=== PATIENT | female | born 1990 | race Two or more races ===

== ENCOUNTER 2020-07-05 01:39 | Observation (INO) | payer BC ==
[2020-07-05] MEDS ORDERED: IV RINGERS,LACTATED 1000ML 1,000 ML IV SCH (01:45)
[2020-07-05 02:07] LABS: BILIRUBIN,URINE NEGATIVE (NEG); CLARITY,URINE CLEAR; COLOR,URINE YELLOW; NITRITE,URINE NEGATIVE (NEG); PROTEIN,URINE NEGATIVE (NEG-TRACE); UROBILINOGEN,URINE 0.2 mg/dL (0.2 mg/dL)
[2020-07-05 02:16] LABS: BACTERIA,URINE MODERATE /HPF (0-FEW)
[2020-07-05 02:22] LABS: BARBITURATES NEG (NEG); BENZODIAZEPINES NEG (NEG); CANNABINOIDS NEG (NEG); COCAINE NEG (NEG); METHADONE NEG (NEG); OPIATES NEG (NEG); PHENCYCLIDINE NEG (NEG)
[2020-07-05 02:30] LABS: AMPHETAMINE/METHAMPHETAMINE NEG (NEG)
--- NOTE | 2020-07-08 10:36 | NUR ---
Lactated Ringers stopped on 07/06/20 at 1130.
== END 2020-07-05 05:40 | disposition home or self-care (01) ==
LOC: 3 SO LND 01:39
PROVIDERS: ADMIT Obstetrics & Gynecology; ATTEND Obstetrics & Gynecology
DX: O99.891 Other specified diseases and conditions complicating pregnancy (principal); M54.9 Dorsalgia, unspecified; O62.9 Abnormality of forces of labor, unspecified; Z3A.29 29 weeks gestation of pregnancy; Z98.891 History of uterine scar from previous surgery; Z79.899 Other long term (current) drug therapy
CPT/HCPCS: 59025; 80307; 81001; 87086; 96360; 96361; G0378; G0379; J7120

== ENCOUNTER → 2020-09-06 | Outpatient (CLI) | payer SELFPAY ==
[~2020-09-06] MED LIST: ASPI-630 PO; PANT20TA2 PO; PREN1TAB58 PO
== END ==
LOC: LAB 13:28
PROVIDERS: ATTEND Obstetrics & Gynecology
DX: Z01.812 Encounter for preprocedural laboratory examination (principal); Z20.822 Contact with and (suspected) exposure to COVID-19
CPT/HCPCS: U0003; U0005

== ENCOUNTER 2020-09-10 05:50 | Inpatient (IN) | payer SELFPAY ==
[2020-09-10] VITALS (7 sets, daily range): BP systolic 104–133; BP diastolic 48–68
[~2020-09-10] VITALS: Ht 149.9 cm; Wt 92.1 kg
[2020-09-10] MEDS ORDERED: IV RINGERS,LACTATED 1000ML 1,000 ML IV SCH (06:15)
[2020-09-10 06:43] LABS: BASO # 0.1 x10^3/uL (0.0-0.2); BASO % 1 % (0-3); EOS # 0.1 x10^3/uL (0.0-0.7); EOS % 1 % (0-3); HEMOGLOBIN 12.4 g/dL (12.0-15.5); LYMPH # 2.6 x10^3/uL (1.0-4.8); LYMPH % 28 % (24-48); MEAN CORPUSCULAR HEMOGLOBIN 29 pg (25-35); MEAN CORPUSCULAR HGB CONC 34 g/dL (31-37); MEAN CORPUSCULAR VOLUME 86 fL (79-100); MONO # 0.5 x10^3/uL (0.0-1.1); MONO % 6 % (0-9); NEUT # 5.8 x10^3/uL (1.8-7.7); NEUT % 64 % (31-73); PLATELET COUNT 199 x10^3/uL (140-400); RED BLOOD COUNT 4.32 x10^6/uL (3.50-5.40); RED CELL DISTRIBUTION WIDTH 13.3 % (11.5-14.5); WHITE BLOOD COUNT 9.1 x10^3/uL (4.0-11.0)
[2020-09-10] MEDS ORDERED: ASPI-630 PO (07:29)
[2020-09-10] MEDS ORDERED: PREN1TAB58 PO (07:29)
[2020-09-10] MEDS ORDERED: PANT20TA2 PO (07:30)
[2020-09-10] MEDS ORDERED: CITRIC ACID/SODIUM CITRATE 30 ML SOLUTION. PO ONE (07:30)
[2020-09-10] MEDS ORDERED: MORPHINE PF 10 MG/10 ML AMPUL. ONE (07:44)
[2020-09-10] MEDS ORDERED: ePHEDrine PF IN SALINE 50 MG/10 ML SYRINGE. IV ONE (07:44)
[2020-09-10] MEDS ORDERED: FAMOTIDINE 20 MG/2 ML VIAL ONE (07:44)
[2020-09-10] MEDS ORDERED: ONDANSETRON PF 4 MG/2 ML VIAL. ONE (07:44)
[2020-09-10] MEDS ORDERED: fentaNYL PF VIAL 100 MCG/2 ML VIAL ONE (07:45)
[2020-09-10] MEDS ORDERED: OXYTOCIN 10 UNIT/ML VIAL. ONE (07:47)
--- NOTE | 2020-09-10 07:54 | PDOC1 ---
ADJUSTER ARBITRATOR H&P Date of Admission: Date of Admission: Sep 10, 2020 at 05:50 History of Present Illness: EDC: 09/15/20 LMP: 12/10/19 30y @ 39.2 by L=20 presents for scheduled C/S. The pt had preeclampsia with her first . She had a C/S after a failed indxn over the course of 3 days. She was started on ASA for the h/o preeclampsia. She stopped ~2wks prior to today. PMH: Denies PSH: C/S x 2 Meds: PNV All: NKDA OBHx: TC/S x 2 SH: no tob, no EtOH FH: HTN, brain tumor Allergies: Coded Allergies: No Known Drug Allergies (Unverified , 07/05/20) Physical Exam: Vital Signs: Vital Signs Date Time Temp Pulse Resp B/P (MAP) Pulse Ox O2 Delivery O2 Flow Rate FiO2 09/10/20 07:23 98.9 89 20 133/68 (89) Room Air 98.9 PE: GENERAL: No apparent distress. Alert and oriented. HEENT: Head normocephalic, atraumatic. NECK: Supple LUNGS: Clear to auscultation. HEART: RRR, S1, S2 present, pulses intact ABDOMEN: Soft, positive bowel sounds. EXTREMITIES: No cyanosis or edema. NEUROLOGIC: Normal speech, normal tone PSYCHIATRIC: Normal affect, normal mood. SKIN: No ulceration. FHT: 130s +acels/no decels/mLTV [place]: 5 min Labs: Laboratory Tests Test 09/10/20 06:18 White Blood Count 9.1 x10^3/uL (4.0-11.0) Red Blood Count 4.32 x10^6/uL (3.50-5.40) Hemoglobin 12.4 g/dL (12.0-15.5) Hematocrit 37.0 % (36.0-47.0) Mean Corpuscular Volume 86 fL (79-100) Mean Corpuscular Hemoglobin 29 pg (25-35) Mean Corpuscular Hemoglobin Concent 34 g/dL (31-37) Red Cell Distribution Width 13.3 % (11.5-14.5) Platelet Count 199 x10^3/uL (140-400) Neutrophils (%) (Auto) 64 % (31-73) Lymphocytes (%) (Auto) 28 % (24-48) Monocytes (%) (Auto) 6 % (0-9) Eosinophils (%) (Auto) 1 % (0-3) Basophils (%) (Auto) 1 % (0-3) Neutrophils # (Auto) 5.8 x10^3/uL (1.8-7.7) Lymphocytes # (Auto) 2.6 x10^3/uL (1.0-4.8) Monocytes # (Auto) 0.5 x10^3/uL (0.0-1.1) Eosinophils # (Auto) 0.1 x10^3/uL (0.0-0.7) Basophils # (Auto) 0.1 x10^3/uL (0.0-0.2) Laboratory Tests 09/10/20 06:18 Laboratory Tests 09/10/20 06:18 Assessment & Plan: A/P 30y @ 39.2 by L=20 1.) Prev C/S x 2 repeat today 2.) H/o preeclampsia - BP's nml throughout thus far 3.) Flu vaccine given 04/02/20 4.) TDAP given 06/24/20 5.) 5yo with brain tumor that was removed 6.) Elevated GTT - 0 out of 4 values elevated on 3hr GTT 7.) GERD - on Protonix 8.) Fetus cat I FHT 9.) GBS neg DUSTIN TSANG MD Sep 10, 2020 07:54
[2020-09-10] MEDS: IV RINGERS,LACTATED 1000ML 1,000 ML IV PRN ×4 (08:04→22:58)
[2020-09-10] MEDS ORDERED: ACETAMINOPHEN 325 MG TABLET. PO PRN (10:45)
[2020-09-10] MEDS ORDERED: diphenhydrAMINE ORAL ELIXIR 12.5 MG/5 ML ML PO PRN (10:45)
[2020-09-10] MEDS ORDERED: MMR per PROTOCOL. MC PRN (10:45)
[2020-09-10] MEDS ORDERED: oxyCODONE/APAP 5/325 1 TAB TABLET PO PRN (10:45)
[2020-09-10] MEDS ORDERED: BENZOCAINE 20% TOPICAL AEROSOL SPRAY 57GM CAN. TP PRN (10:45)
[2020-09-10] MEDS ORDERED: 0.9 % SODIUM CHLORIDE 10 ML DISP.SYRIN. IV PRN (10:45)
[2020-09-10] MEDS ORDERED: OXYTOCIN 30 UNIT/500 ML PREMIX 500 ML IV PRN (10:45)
[2020-09-10] MEDS ORDERED: TDaP (Adacel) per PROTOCOL. MC PRN (10:45)
[2020-09-10] MEDS: KETOROLAC 30 MG/ML VIAL. IVP PRN ×2 (10:49→17:40)
--- NOTE | 2020-09-10 11:24 | PDOC4 ---
OPERATIVE NOTE: PreOp Dx: 1.) IUP @ 39.2 by L=20, 2.) Prev C/S x 2, 3.) H/o preeclampsia, 4.) 5yo with brain tumor that was removed, 5.) Elevated GTT - 0 out of 4 values elevated on 3hr GTT, 6.) GERD, 7.) GBS neg PostOp Dx: same Procedure: RHTCS Surgeon: Eusebio Tsang Anesthesia: Spinal EBL: 900 cc Fluids: 2400 cc UOP: 200 cc Complications: None Findings: viable male delivered at 0849. Wt 7 lb 10 oz. APGARS 8/9. Cord ABG pH 7.16 / BE -3, cord VBG 7.31 / BE 0. In the midline the rectus muscle was completely fused with the anterior of the uterus. Also significant serosal adhesions laterally. Path: Cord blood, cord ABG DUSTIN TSANG MD Sep 10, 2020 11:24
--- NOTE | 2020-09-10 14:53 | OP ---
DATE OF SURGERY: 09/10/2020 PREOPERATIVE DIAGNOSES: 1. Intrauterine at 39 weeks and 2 days by LMP equal to 20-week ultrasound. 2. Previous x2. 3. History of preeclampsia. 4. A 5-year-old child with a brain tumor. 5. Elevated GTT with 0 out of 4 values of the 3-hour GTT elevated. 6. Gastroesophageal reflux disease. 7. GBS negative. POSTOPERATIVE DIAGNOSES: 1. Intrauterine at 39 weeks and 2 days by LMP equal to 20-week ultrasound. 2. Previous x2. 3. History of preeclampsia. 4. A 5-year-old child with a brain tumor. 5. Elevated GTT with 0 out of 4 values of the 3-hour GTT elevated. 6. Gastroesophageal reflux disease. 7. GBS negative. PROCEDURE: Repeat high transverse . SURGEON: Anival Smith MD. ANESTHESIA: Spinal. ESTIMATED BLOOD LOSS: 900 mL. FLUID: 2400 mL. URINE OUTPUT: 200 mL. COMPLICATIONS: None. FINDINGS: Viable male infant delivered at 0849, weighing 7 pounds 10 ounces with Apgars of 8 and 9. Cord ABG with a pH of 7.16 with a base excess of -3 and a cord VBG with a pH of 7.31 and a base excess of 0. It is noted that the midline of the rectus muscle and anterior of the uterus are completely fused. There are also significant serosal adhesions laterally. PATHOLOGY: Cord blood and cord ABG. DESCRIPTION OF PROCEDURE: The patient was taken to the operating room, where spinal anesthesia was placed without difficulty. The patient was prepped and draped in a normal sterile fashion with a left lateral tilt. A Pfannenstiel skin incision was made through her previous incision, carried down to the underlying layer of fascia. The fascia was then nicked in the midline. The fascial incision was then extended laterally with Anderson scissors. Superior aspect of the fascial incision was then grasped with Bimal clamps, elevated, and underlying rectus muscle was dissected off with the scalpel. Attention was then turned to the inferior aspect of the fascial incision, which again was grasped with Bimal clamps, elevated and the underlying rectus muscle was dissected off with Anderson scissors. What appeared to be the midline of the rectus muscle was grasped with two hemostats and tented up. Sharp dissection with Metzenbaum scissors were performed to attempt to enter the peritoneal cavity. This dissection made it clear that what was thought to be the perineum was the myometrium. At that point, attempts were made to find the plane between the uterus and the intra-abdominal cavity by going laterally. Once this plane was found, digital exam was used to take down the serosal adhesion to the anterior abdominal wall. Once the serosal adhesions could be isolated by placing my finger from lateral openings of the intra-abdominal cavity around the serosal adhesion. This serosal adhesion was then taken down with a Bovie to separate the uterus from the anterior abdominal wall. At that point, there was still some pretty significant serosal adhesions laterally as well, so it was hard to enter the intra-abdominal cavity inferiorly as well. At that point, Nathan ring was placed, but since we could not get into the intra-abdominal cavity inferiorly, we ultimately could not use the Nathan. So, we placed a bladder blade instead. At that point, some of the thin serosal adhesions on the anterior of the uterus were taken down with Metzenbaum scissors. This ultimately lead to the creation of a bladder flap. Once this was done, examination of the uterus revealed the location where the Metzenbaum scissors were used to enter the peritoneum, actually was a little bit higher on the uterus than the lower uterine segment. Since the trauma had already been created this was chosen as the location for the hysterotomy, so that this could be incorporated in the closure. The uterus was incised in transverse fashion in this location with a scalpel. The incision was then extended with traction and countertraction. Once the amniotic sac was ruptured, the fetus's right arm was exiting the hysterotomy. This was reduced and the head was then brought to the hysterotomy and delivered. The rest of the was delivered atraumatically. The cord was double clamped and cut and the was handed over to the waiting Code Official. The placenta was then removed manually and cleared of all clots and debris. The uterus was then exteriorized and it was noted that there was some thin omental adhesions to the superior aspect of the anterior uterus. These were then taken down with the Bovie, which allowed for the uterus to be exteriorized. Once exteriorized, the uterine incision was repaired with #1 chromic in a running locked fashion. At that time, examination of the adhesions revealed significant serosal adhesions bilaterally. The serosal adhesions on the left were then isolated digitally and then taken down digitally as well as with the [place]. This restored the anatomy on this side. Attention was then turned to the right side, which had a thicker serosal adhesions. These too were isolated digitally, but required the Bovie to take down to restore her anatomy. Once this had been resolved, a second layer of the #1 chromic was used to imbricate. There were still some areas on the serosa that were bleeding. A [id number] stitch was placed superiorly on the left side of the incision, which allowed for hemostasis at this location, there was also a location of the midline that appeared to be bleeding. This was resolved with a [id number] stitch with #1 chromic as well. At that point, the uterus was returned to the abdomen. The gutters were copiously irrigated and cleared of all clots and debris. Due to the significant adhesions that were present during this procedure to prevent this from occurring with her next , Interceed was placed over her hysterotomy. At that point, attempts were made to return to close the peritoneum, but the peritoneum could not be identified on the right side. Therefore, the peritoneum and muscle were connected on both sides due to likely diastasis that had been created from the uterus, the rectus muscle. Rectus muscle could not be brought back together without wrapping through the muscle. It was reapproximated to the best ability with 2-0 Vicryl. At that point, the fascia was then closed with 0 Vicryl in a running fashion. The skin was then closed with 3-0 Monocryl in a subcuticular manner. Sponges, laps and needles were correct x3. Three grams of Ancef were given prior to the procedure. A Prevena dressing was placed over the incision. The patient tolerated the procedure well and was taken to recovery room in stable condition. VERA/MIK DR: Kelley TID: [id number] ISAAC
[2020-09-11] MEDS: KETOROLAC 30 MG/ML VIAL. IVP PRN (03:09)
[2020-09-11 03:23] VITALS: BP 110/54
[2020-09-11] MEDS: oxyCODONE/APAP 5/325 1 TAB TABLET PO PRN ×4 (06:42→21:14)
[2020-09-11 06:48] VITALS: BP 100/53
[2020-09-11 07:46] LABS: HEMATOCRIT 29.3 % (36.0-47.0); HEMOGLOBIN 9.6 g/dL (12.0-15.5); RED BLOOD COUNT 3.38 x10^6/uL (3.50-5.40); RED CELL DISTRIBUTION WIDTH 13.5 % (11.5-14.5); WHITE BLOOD COUNT 12.3 x10^3/uL (4.0-11.0)
[2020-09-11] MEDS: FERROUS SULFATE 325 MG TABLET. PO SCH ×2 (08:00→08:34)
[2020-09-11] MEDS: PRENATAL MULTIVITAMIN TABLET. PO SCH (08:34)
[2020-09-11] MEDS: DOCUSATE SODIUM 100 MG CAPSULE. PO PRN (08:34)
[2020-09-11] MEDS: IBUPROFEN 400 MG TABLET. PO PRN ×2 (08:35→15:31)
[2020-09-11 08:44] VITALS: BP 108/52
[2020-09-11] MEDS ORDERED: MULTIVITAMIN with MINERAL TABLET. PO SCH (09:00)
--- NOTE | 2020-09-11 10:42 | PDOC ---
WOODYARD OPERATOR PROGRESS NOTE Date of Service: DATE: 09/11/20 TIME: 10:41 Subjective: Pt with good pain control. Kelly PO. Voiding. Minimal lochia Objective: Vital Signs: Vital Signs Date Time Temp Pulse Resp B/P (MAP) Pulse Ox O2 Delivery O2 Flow Rate FiO2 09/10/20 07:23 98.9 89 20 133/68 (89) Room Air 98.9 09/10/20 12:45 98 Vital Signs Date Time Temp Pulse Resp B/P (MAP) Pulse Ox O2 Delivery O2 Flow Rate FiO2 09/11/20 08:44 98.6 110 16 108/52 (70) 94 Room Air 98.6 Labs: Laboratory Tests Test 09/11/20 07:15 White Blood Count 12.3 x10^3/uL (4.0-11.0) H Red Blood Count 3.38 x10^6/uL (3.50-5.40) L Hemoglobin 9.6 g/dL (12.0-15.5) L Hematocrit 29.3 % (36.0-47.0) L Mean Corpuscular Volume 87 fL (79-100) Mean Corpuscular Hemoglobin 28 pg (25-35) Mean Corpuscular Hemoglobin Concent 33 g/dL (31-37) Red Cell Distribution Width 13.5 % (11.5-14.5) Platelet Count 174 x10^3/uL (140-400) Laboratory Tests 09/11/20 07:15 Laboratory Tests 09/11/20 07:15 Physical Exam: GENERAL: No apparent distress. Alert and oriented. HEENT: Head normocephalic, atraumatic. NECK: Supple LUNGS: Clear to auscultation. HEART: RRR, S1, S2 present, pulses intact ABDOMEN: Soft, positive bowel sounds. EXTREMITIES: No cyanosis or edema. NEUROLOGIC: Normal speech, normal tone PSYCHIATRIC: Normal affect, normal mood. SKIN: No ulceration. FFNT below umb No C/C/E Inc: dressing dry Provena in place Assessment & Plan: A/P 30y POD #1 s/p RHTCS 1.) PO doing well 2.) H/o preeclampsia - BP's nml throughout and hospitalization 3.) Flu vaccine given 04/02/20 4.) TDAP given 06/24/20 5.) Hgb 12.4 -> 9.6 6.) GERD 7.) Cont PO care DSUTIN TSANG MD Sep 11, 2020 10:42
[2020-09-11 13:23] VITALS: BP 98/46
[2020-09-11 15:53] VITALS: BP 110/57
[2020-09-11 20:00] VITALS: BP 107/53
[2020-09-12 02:00] VITALS: BP 122/69
[2020-09-12] MEDS: IBUPROFEN 400 MG TABLET. PO PRN ×2 (04:30→15:02)
[2020-09-12 08:00] VITALS: BP 96/55
[2020-09-12] MEDS: FERROUS SULFATE 325 MG TABLET. PO SCH ×2 (08:00→09:51)
--- NOTE | 2020-09-12 09:40 | PDOC ---
MILK RUNNER PROGRESS NOTE Date of Service: DATE: 09/12/20 TIME: 09:40 Subjective: Pt with good pain control. Kelly PO. Voiding. Minimal lochia. Denies f/c Objective: Vital Signs: Vital Signs Date Time Temp Pulse Resp B/P (MAP) Pulse Ox O2 Delivery O2 Flow Rate FiO2 09/11/20 08:10 Room Air 09/11/20 08:14 16 96 09/11/20 08:44 98.6 110 108/52 (70) 98.6 Vital Signs Date Time Temp Pulse Resp B/P (MAP) Pulse Ox O2 Delivery O2 Flow Rate FiO2 09/12/20 05:00 18 Room Air 09/12/20 02:00 100.0 93 122/69 (86) 95 100.0 Physical Exam: GENERAL: No apparent distress. Alert and oriented. HEENT: Head normocephalic, atraumatic. NECK: Supple LUNGS: Clear to auscultation. HEART: RRR, S1, S2 present, pulses intact ABDOMEN: Soft, positive bowel sounds. EXTREMITIES: No cyanosis or edema. NEUROLOGIC: Normal speech, normal tone PSYCHIATRIC: Normal affect, normal mood. SKIN: No ulceration. FFNT below umb No C/C/E Inc: dressing dry Provena in place Assessment & Plan: A/P 30y POD #2 s/p RHTCS 1.) PO doing well 2.) H/o preeclampsia - BP's nml throughout and hospitalization 3.) Temp of 100.0 (09/12 at 0200) 4.) Flu vaccine given 04/02/20 5.) TDAP given 06/24/20 6.) Hgb 12.4 -> 9.6 7.) GERD 8.) Cont PO care DUSTIN TSANG MD Sep 12, 2020 09:40
[2020-09-12] MEDS: PRENATAL MULTIVITAMIN TABLET. PO SCH (09:51)
[2020-09-12] MEDS: DOCUSATE SODIUM 100 MG CAPSULE. PO PRN (09:51)
[2020-09-12] MEDS: oxyCODONE/APAP 5/325 1 TAB TABLET PO PRN ×2 (09:52→15:02)
[2020-09-12] MEDS ORDERED: IBUP-1060 PO (11:29)
[2020-09-12] MEDS ORDERED: DOCU-109 PO (11:29)
[2020-09-12] MEDS ORDERED: OXYC1TAB15 PO (11:29)
[2020-09-12] MEDS ORDERED: FERR325T14 PO (11:29)
--- NOTE | 2020-09-12 14:56 | DS ---
ADMISSION DIAGNOSES: 1. Intrauterine at 39 weeks and 2 days by LMP equal to a 20-week ultrasound. 2. Previous x 2. 3. History of preeclampsia. 4. Status post flu vaccine. 5. Status post Tdap. 6. Patient with a child that 5 years old with brain tumor, recently removed. 7. Elevated glucose tolerance test with 0/4 values of the 3-hour glucose test elevated. 8. Gastroesophageal reflux disease. 9. GBS negative. DISCHARGE DIAGNOSES: 1. Intrauterine at 39 weeks and 2 days by LMP equal to a 20-week ultrasound. 2. Previous x 2. 3. History of preeclampsia. 4. Status post flu vaccine. 5. Status post Tdap. 6. Patient with a child that 5 years old with brain tumor, recently removed. 7. Elevated glucose tolerance test with 0/4 values of the 3-hour glucose test elevated. 8. Gastroesophageal reflux disease. 9. GBS negative. PROCEDURES: Repeat low transverse . BRIEF HOSPITAL COURSE: The patient is a 30-year-old 3, para 2-0-0-2 at 39 weeks and 2 days by LMP equal to a 20-week ultrasound, who presented to labor and delivery for a scheduled . The patient had had preeclampsia with her first , but has had no issues with blood pressure during this . The patient's first was a failed induction over the course of 3 days. The patient had with a second one for her history of preeclampsia. The patient was started on aspirin, which she stopped 2 weeks prior to her scheduled . The patient underwent said procedure on 09/10/2020. See operative note for full detail. By postoperative day #2, the patient was meeting all discharge criteria and was subsequently discharged home. Of note, the patient had a hemoglobin of 12.4 on admission and after delivery, was found to be 9.6. DISCHARGE INSTRUCTIONS: The patient was told not to lift anything greater than 20 pounds. Pelvic rest for [address] on narcotics. CALL IF: The patient was to call if she has fevers, chills, nausea, vomiting, abdominal pain, or any additional questions or concerns. DISCHARGE APPOINTMENT: The patient was scheduled [place] be [place] on 09/19/2020 at 1[place]00 [place] [facility] [place] DISCHARGE MEDICATIONS: The patient was given a prescription for Percocet 5, 15 pills; Motrin 800 mg, 30 pills; ferrous sulfate 325 mg, 3 pills and Colace sulfate 100 mg, 30 pills. [facility] [place] DR: Kelley TID: [id number]
[2020-09-12 15:12] VITALS: BP 117/67
--- NOTE | 2020-09-12 16:01 | NUR ---
pt. discharges at 1350, vss, father discharges at this time
== END 2020-09-12 15:43 | disposition home or self-care (01) | DRG 788 ==
LOC: 3 SO LND 05:50
PROVIDERS: ADMIT Obstetrics & Gynecology; ATTEND Obstetrics & Gynecology
PROC: 10D00Z1 Extraction of Products of Conception, Low, Open Approach (ICD-10-PCS; principal; 2020-09-10)
DX: O34.211 Maternal care for low transverse scar from previous cesarean delivery (principal); O16.4 Unspecified maternal hypertension, complicating childbirth; O99.62 Diseases of the digestive system complicating childbirth; K21.9 Gastro-esophageal reflux disease without esophagitis; Z37.0 Single live birth; Z3A.39 39 weeks gestation of pregnancy
CPT/HCPCS: 36415; 36600; 85025; 85027; 86592; 86850; 86900; 86901; C1755; J0690; J1885; J2274; J2405; J2590; J3010; J3490; J7120; G0378